=== PATIENT | female | born 2000 | race Caucasian/White ===

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

== ENCOUNTER 2025-05-20 07:35 | Inpatient (IN) ==
[2025-05-20] MEDS ORDERED: LIDOCAINE 1% LOCAL 20 ML VIAL INFIL PRN (08:01)
[2025-05-20] MEDS ORDERED: OXYTOCIN 30 UNITS/NSS 30 UNITS/500 ML BAG IV PRN (08:01)
[2025-05-20] MEDS: LACTATED RINGER'S 1,000 ML IV PRN (08:58)
--- NOTE | 2025-05-20 08:58 | History & Physical Report ---
Date of Service May 20, 2025 Assessment & Plan (1) Normal labor: Plan: Pt is a 25yo at 39w 6d with no significant antepartum hx presenting for induction of labor Routine labs ordered Pitocin ordered Epidural placement on demand Monitor tracing Expectant management for labor, anticipate Admission and Anticipated Discharge Date Admission Date: May 20, 2025 History of Present Illness Chief Complaint: IOL Primary Care Provider: Aziza Pino MD Pt is a 25yo female currently at 39w 6d with an EB 05/21/25 who is here for induction of labor. Jones bulb placed 05/19. Adequate movement; not feeling contractions, no fluid loss; no bloody show PMH: Obesity Had regular appointments with OB. Labs: Blood Type AB Positive 12/09/24 Antibody Screen NEGATIVE 12/09/24 Hgb 11.2 g/dl (12.0-16.0) L 02/24/25 Hct 34.3 % (37.0-47.0) L 02/24/25 MCV 83.8 fL (80.0-100.0) 10/20/24 Plt Count 330 Thousand/uL (140-400) 10/20/24 Rubella IgG Antibody 6.89 Index 10/20/24 Treponema pallidum Ab Negative (Negative) 02/24/25 Hepatitis C Ab (EIA) NON-REACTIVE (NON-REACTIVE) 10/20/24 HIV (1&2) Ag & Ab Conf NON-REACTIVE (NON-REACTIVE) 10/20/24 Glucose 1 Hr 50 gm 132 mg/dl (70-130) H 02/24/25 Chlamydia trachomatis RNA Not Detected (NotDetected) 10/19/24 Neisseria gonorrhoeae RNA Not Detected (NotDetected) 10/19/24 Labs Reviewed: declined cfDNA, msafp, quad smp gbs neg Review of Systems : Denies fever, chills, headache, vision changes, shortness of breath, difficulty breathing, chest pain, palpitations, RUQ/epigastric pain, dysuria Allergies Allergy/AdvReac Type Severity Reaction Status Date / Time No Known Allergies Allergy Unknown Verified 05/20/25 08:40 Home Medications Medication Instructions Recorded Confirmed Type digital therapeutic,LIAN device #1 ea 03/27/24 05/19/25 Rx prenat.vits,brandyn,[id number]-[id number] 1 tab PO DAILY 10/13/24 05/20/25 History breast pump #1 ea 01/06/25 05/19/25 Rx ferrous sulfate 325 mg (65 mg 325 mg PO Q OTHER DAY 05/19/25 05/20/25 History iron) tablet (iron) Patient History Medical History Difficult intravenous access AT RECENT MED ED VISIT/IV TEAM/ULTRASOUND NEEDED Migraines Nephrolithiasis Surgical History History of lithotripsy S/P subtotal parathyroidectomy Family History Other Dyslipidemia Denies family history of Ovarian cancer Prostate cancer Myocardial infarction Breast cancer Colorectal cancer Uterine cancer Social History Smoking Status: Never smoker Second Hand Exposure: No; Do You Dip or Chew Tobacco: No; Hx Alcohol Use: No Hx Substance Use: No Preferred Language: [place] Communication Ability: Effective Tape Machine Tailer Required: No Beliefs That Will Affect Care: None marital status: marital status details: Renato (23) [phone] Current Living Situation: Spouse Current Living Situation Comment: lives with spouse, 1 dog current occupational status: employed 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 Skin: warm, dry, intact HEENT: NC/AT, anicteric sclera, conjunctiva without injection Heart: S1/S2 heard, regular, no m/r/g Lungs: equal air entry bilaterally, no rales/rhonchi/wheezes Abd: Normoactive BS, soft, NT/ND, gravid uterus Ext: warm, no clubbing/cyanosis or edema Neuro: nonfocal, speech intact, no facial droop, moving all extremities on command : FHR baseline 145, moderate variability, accelerations present, decelerations absent, no contractions. Category 1 tracing. Results & Data Vital Signs (Past 12 Hours) Vital Signs Temp Pulse Resp BP 05/20/25 07:50 37.0 C 104 H 20 130/69 05/20/25 07:48 37.0 C 104 H 20 130/69 Supervising Physician Co-Signing Physician Notes Resident Physician Supervision Note: I interviewed and examined the patient. Discussed with Dr. Wilson and agree with findings and plan as documented in the note. Any exceptions or clarifications are listed here: ready for elective induction, no complaints. balloon still in place. abd soft gravid nt, efw 7-8#. ext nt calves, no edema. sve, balloon in vagina, cx /-2 post, arom attempted x 2 ? result. fhts categ 1. will begin pitocin. expectant mgmt. Documented By: Shasha Duarte MD, FACOG Resident Activity Tracking Resident Involvement: Resident Care Provided Care Provided: OB Delivery
[2025-05-20 09:00] LABS: Hematocrit (blood only) 36.0 % (37.0-47.0); Hemoglobin 12.1 g/dl (12.0-16.0); Mean Corpuscular Hemoglobin 27.9 pg (25.0-34.0); Mean Corpuscular Volume 82.9 fL (80.0-100.0); Platelet Count 205 K/uL (130-400); RDW Standard Deviation 43.3 fL (36.4-46.3); Red Blood Count 4.34 M/uL (4.20-5.40); White Blood Count 13.73 K/ul (4.8-10.8)
[2025-05-20] MEDS: OXYTOCIN 30 UNITS/NSS 30 UNITS/500 ML BAG IV PRN (09:03)
[2025-05-20] MEDS ORDERED: NALBUPHINE HCL INJ 10 MG/ML AMP IV PRN ×2 (11:33→20:19)
[2025-05-20] MEDS ORDERED: LIDOCAINE 2% MPF LOCAL 5 ML VIAL EPI PRN (11:33)
[2025-05-20] MEDS ORDERED: NALOXONE HCL 0.4 MG/1 ML VIAL/CARP IV PRN ×2 (11:33→20:19)
[2025-05-20] MEDS ORDERED: NALOXONE HCL 1 MG in SODIUM CHLORIDE 0.9% 1,000 ML IV PRN ×2 (11:33→20:19)
[2025-05-20] MEDS ORDERED: SODIUM CHLORIDE 0.9% PF INJ 10 ML VIAL EPI PRN (11:33)
[2025-05-20] MEDS ORDERED: fentANYL 2 MCG/ML BUPIVacaine 0.125%-NSS 100ML BAG EPI PRN (11:33)
[2025-05-20] MEDS ORDERED: BUPIVACAINE 0.25% PF 30 ML VIAL EPI PRN (11:33)
[2025-05-20] MEDS ORDERED: ROPIVACAINE 0.5% PF 5 MG/ML 20 ML VIAL EPI PRN (11:33)
--- NOTE | 2025-05-20 11:33 | Anesthesiology Consultation ---
Date of Service May 20, 2025 Assessment & Plan (1) Encounter for pre-operative examination: Chart Review Chart Review: Patient NOT seen in Pre Admission Testing and Acceptable Risk for Labor Epidural Consults Requested none History Height/Weight Height: 5 ft 4 in Weight: 116.573 kg Allergies Allergy/AdvReac Type Severity Reaction Status Date / Time No Known Allergies Allergy Unknown Verified 05/20/25 08:40 Medications Home Medications Medication Instructions Recorded Confirmed Last Taken digital therapeutic,LIAN device #1 ea 03/27/24 05/19/25 Unknown prenat.vits,brandyn,afo-jpal-[id number] 1 tab PO DAILY 10/13/24 05/20/25 05/19/25 breast pump #1 ea 01/06/25 05/19/25 Unknown ferrous sulfate 325 mg (65 mg 325 mg PO Q OTHER DAY 05/19/25 05/20/25 05/18/25 iron) tablet (iron) Active Medications Generic Name Dose Route Start Last Admin Trade Name Freq PRN Reason Stop Dose Admin Lactated Ringer's 1,000 mls @ 125 mls/hr 05/20/25 08:01 05/20/25 11:26 Lr IV 05/22/25 08:00 999 mls/hr .Q8H PRN Infusion L&D Protocol Protocol Oxytocin 30 units in 500 mls @ 8 mls/hr 05/20/25 08:11 05/20/25 11:00 Pitocin 30 Units/Nss IV 05/22/25 08:10 0.48 units/hr .Q24H PRN 8 mls/hr Labor Induction/Augmentation Titration Protocol 0.48 UNITS/HR Past Medical History Medical History Difficult intravenous access AT RECENT MED ED VISIT/IV TEAM/ULTRASOUND NEEDED Migraines Nephrolithiasis Past Family History Family History Other Dyslipidemia Denies family history of Ovarian cancer Prostate cancer Myocardial infarction Breast cancer Colorectal cancer Uterine cancer Past Surgical History Surgical History History of lithotripsy S/P subtotal parathyroidectomy Social History Smoking Status: Never smoker Do You Dip or Chew Tobacco: No Hx Alcohol Use: No Hx Substance Use: No substance use type: does not use Physical Exam Vital Signs Last Vital Signs Temp 98.2 F 05/20/25 11:02 Pulse 71 05/20/25 11:03 Resp 18 05/20/25 11:02 BP 109/67 05/20/25 11:03 Testing Laboratory Results 05/20/25 08:49 Blood Type AB Positive 05/20/25 08:49 Antibody Screen NEGATIVE 05/20/25 08:49
[2025-05-20] MEDS: fentANYL 2 MCG/ML BUPIVacaine 0.125%-NSS 100ML BAG ONE (11:54)
[2025-05-20] MEDS: BUPIVACAINE 0.25% PF 30 ML VIAL ONE (11:57)
[2025-05-20] MEDS: LIDOCAINE 2%/EPINEPHRINE 1:200,000 20 ML PF ONE (11:58)
[2025-05-20] MEDS: SODIUM CHLORIDE 0.9% PF INJ 10 ML VIAL ONE (11:58)
[2025-05-20] MEDS: BUPIVACAINE 0.25% PF 30 ML VIAL EPI STA (11:58)
[2025-05-20] MEDS: LIDOCAINE 2%/EPINEPHRINE 1:200,000 20 ML PF EPI STA (11:59)
[2025-05-20] MEDS: SODIUM CHLORIDE 0.9% PF INJ 10 ML VIAL EPI STA (11:59)
--- NOTE | 2025-05-20 12:11 | Labor Progress Brief Note ---
Date of Service May 20, 2025 Subjective comfortable with epidural. Assessment & Plan (1) Encounter for induction of labor: Plan c/w pit. fhts categ 1. some cx change. Admission and Anticipated Discharge Date Admission Date: May 20, 2025 Physical Exam Constitutional: WD/WN, vitals as above Genitourinary: Manual OB Exam: + cervical dilation 5 cm, + cervical effacement 70%, + station -2 and + amniotic fluid (arom ? thin mec) Results & Data Vital Signs (Past 12 Hours) Vital Signs Temp Pulse Resp BP Pulse Ox 05/20/25 12:03 94 H 05/20/25 12:03 119/63 05/20/25 12:02 97 05/20/25 12:02 86 05/20/25 11:57 96 05/20/25 11:57 78 05/20/25 11:57 84 05/20/25 11:57 116/59 L 05/20/25 11:54 88 05/20/25 11:54 123/62 05/20/25 11:52 97 05/20/25 11:52 78 05/20/25 11:52 118/68 05/20/25 11:51 88 05/20/25 11:51 114/72 05/20/25 11:47 98 05/20/25 11:47 91 H 05/20/25 11:42 99 05/20/25 11:42 80 05/20/25 11:37 96 05/20/25 11:37 83 05/20/25 11:03 71 05/20/25 11:03 109/67 05/20/25 11:02 18 05/20/25 11:02 98.2 F 18 05/20/25 10:17 18 05/20/25 10:17 18 05/20/25 10:17 81 05/20/25 10:17 128/65 05/20/25 07:50 98.6 F 104 H 20 130/69 05/20/25 07:48 98.6 F 104 H 20 130/69 Coding Level of Care Code None Diagnoses Encounter for induction of labor Z34.90
--- NOTE | 2025-05-20 15:09 | Labor Progress Brief Note ---
Date of Service May 20, 2025 Subjective comfortable with epidural Assessment & Plan (1) Encounter for induction of labor: Plan c/w pit, some cx change. fhts with ? early decels vs. variable decels vs. late decels, not persistent, has been repositioned and now fhts are categ 1. Admission and Anticipated Discharge Date Admission Date: May 20, 2025 Physical Exam Constitutional: WD/WN, vitals as above Genitourinary: Manual OB Exam: + cervical dilation 5 cm, + cervical effacement (75%) and + station -1 OB Exam Monitor Tracing: + external FHT monitor used, + external uterine monitor used (q2-4 pit at 12), + category I (+scalp stim response. ), + normal FHT variability and + early decelerations present (?, vs. variables non persistent. ) Results & Data Vital Signs (Past 12 Hours) Vital Signs Temp Pulse Resp BP Pulse Ox 05/20/25 15:02 100 05/20/25 15:02 82 05/20/25 15:00 93 H 05/20/25 15:00 106/59 L 05/20/25 14:57 97 05/20/25 14:57 70 05/20/25 14:52 97 05/20/25 14:52 69 05/20/25 14:47 97 05/20/25 14:47 71 05/20/25 14:46 78 05/20/25 14:46 108/60 05/20/25 14:42 96 05/20/25 14:42 74 05/20/25 14:37 98 05/20/25 14:37 67 05/20/25 14:32 97 05/20/25 14:32 85 05/20/25 14:30 76 05/20/25 14:30 111/60 05/20/25 14:27 98 05/20/25 14:27 77 05/20/25 14:22 97 05/20/25 14:22 82 05/20/25 14:17 97 05/20/25 14:17 78 05/20/25 14:15 74 05/20/25 14:15 110/63 05/20/25 14:12 97 05/20/25 14:12 77 05/20/25 14:07 97 05/20/25 14:07 79 05/20/25 14:02 96 05/20/25 14:02 86 05/20/25 14:01 18 05/20/25 14:01 18 05/20/25 14:00 88 05/20/25 14:00 120/69 05/20/25 13:57 97 05/20/25 13:57 84 05/20/25 13:52 98 05/20/25 13:52 72 05/20/25 13:47 99 05/20/25 13:47 70 05/20/25 13:47 74 05/20/25 13:47 110/65 05/20/25 13:42 97 05/20/25 13:42 74 05/20/25 13:37 97 05/20/25 13:37 81 05/20/25 13:32 97 05/20/25 13:32 87 05/20/25 13:32 79 05/20/25 13:32 117/64 05/20/25 13:29 93 05/20/25 13:29 83 05/20/25 13:27 97 05/20/25 13:27 78 05/20/25 13:22 98 05/20/25 13:22 83 05/20/25 13:17 96 05/20/25 13:17 75 05/20/25 13:16 78 05/20/25 13:16 115/62 05/20/25 13:12 99 05/20/25 13:12 79 05/20/25 13:07 95 05/20/25 13:07 72 05/20/25 13:02 96 05/20/25 13:02 75 05/20/25 13:00 18 05/20/25 13:00 97.9 F 18 05/20/25 13:00 84 05/20/25 13:00 109/60 05/20/25 12:58 94 05/20/25 12:58 84 05/20/25 12:57 94 05/20/25 12:57 83 05/20/25 12:52 96 05/20/25 12:52 81 05/20/25 12:47 96 05/20/25 12:47 73 05/20/25 12:46 74 05/20/25 12:46 109/59 L 05/20/25 12:42 96 05/20/25 12:42 70 05/20/25 12:37 97 05/20/25 12:37 69 05/20/25 12:32 96 05/20/25 12:32 71 05/20/25 12:31 77 05/20/25 12:31 108/58 L 05/20/25 12:27 95 05/20/25 12:27 77 05/20/25 12:22 96 05/20/25 12:22 71 05/20/25 12:17 96 05/20/25 12:17 75 05/20/25 12:13 72 05/20/25 12:13 116/62 05/20/25 12:12 97 05/20/25 12:12 74 05/20/25 12:08 82 05/20/25 12:08 119/65 05/20/25 12:07 97 05/20/25 12:07 79 05/20/25 12:03 94 H 05/20/25 12:03 119/63 05/20/25 12:02 97 05/20/25 12:02 86 05/20/25 11:57 96 05/20/25 11:57 78 05/20/25 11:57 84 05/20/25 11:57 116/59 L 05/20/25 11:54 88 05/20/25 11:54 123/62 05/20/25 11:52 97 05/20/25 11:52 78 05/20/25 11:52 118/68 05/20/25 11:51 88 05/20/25 11:51 114/72 05/20/25 11:47 98 05/20/25 11:47 91 H 05/20/25 11:42 99 05/20/25 11:42 80 05/20/25 11:37 96 05/20/25 11:37 83 05/20/25 11:03 71 05/20/25 11:03 109/67 05/20/25 11:02 18 05/20/25 11:02 98.2 F 18 05/20/25 10:17 18 05/20/25 10:17 18 05/20/25 10:17 81 05/20/25 10:17 128/65 05/20/25 07:50 98.6 F 104 H 20 130/69 05/20/25 07:48 98.6 F 104 H 20 130/69 Coding Level of Care Code None Diagnoses Encounter for induction of labor Z34.90
[2025-05-20] MEDS ORDERED: Nursing to Pharmacy Communication SCH ×2 (17:15→21:30)
--- NOTE | 2025-05-20 17:37 | Labor Progress Brief Note ---
Date of Service May 20, 2025 Subjective comfortable, ctsp due to decels. Assessment & Plan (1) Encounter for induction of labor: (2) with 39 completed weeks gestation: (3) Antepartum variable deceleration: Plan +scalp stim response, fse and iupc placed. these are variables but deep and not near delivery. mvu's >200. will back off pit to 10. begin amnioinfusion. pt and family aware. Admission and Anticipated Discharge Date Admission Date: May 20, 2025 Physical Exam Constitutional: WD/WN, vitals as above Genitourinary: Manual OB Exam: + cervical dilation 7 cm, + cervical effacement 100% and + station 0 OB Exam Monitor Tracing: + external FHT monitor used, + scalp electrode used, + external uterine monitor used (q2 pit at 12), + intra-uterine pressure catheter used, + category II, + normal FHT variability and + variable decelerations (not persistent but can be deep, maternal position has been changed) Results & Data Vital Signs (Past 12 Hours) Vital Signs Temp Pulse Resp BP Pulse Ox 05/20/25 17:31 87 05/20/25 17:31 120/66 05/20/25 17:27 98 05/20/25 17:27 87 05/20/25 17:22 98 05/20/25 17:22 102 H 05/20/25 17:17 98 05/20/25 17:17 90 05/20/25 17:16 18 05/20/25 17:16 98.2 F 18 05/20/25 17:16 92 H 05/20/25 17:16 112/70 05/20/25 17:12 98 05/20/25 17:12 92 H 05/20/25 17:07 99 05/20/25 17:07 98 H 05/20/25 17:02 99 05/20/25 17:02 86 05/20/25 17:01 93 H 05/20/25 17:01 132/62 05/20/25 16:57 98 05/20/25 16:57 91 H 05/20/25 16:52 98 05/20/25 16:52 92 H 05/20/25 16:47 98 05/20/25 16:47 86 05/20/25 16:45 78 05/20/25 16:45 114/58 L 05/20/25 16:42 97 05/20/25 16:42 86 05/20/25 16:37 98 05/20/25 16:37 85 05/20/25 16:32 99 05/20/25 16:32 80 05/20/25 16:30 82 05/20/25 16:30 112/55 L 05/20/25 16:27 97 05/20/25 16:27 87 05/20/25 16:22 98 05/20/25 16:22 81 05/20/25 16:17 99 05/20/25 16:17 78 05/20/25 16:16 97 H 05/20/25 16:16 116/65 05/20/25 16:13 94 05/20/25 16:13 85 05/20/25 16:12 98 05/20/25 16:12 84 05/20/25 16:07 98 05/20/25 16:07 76 05/20/25 16:02 97 05/20/25 16:02 77 05/20/25 16:01 16 05/20/25 16:01 16 05/20/25 16:01 79 05/20/25 16:01 110/62 05/20/25 15:57 98 05/20/25 15:57 90 05/20/25 15:54 93 05/20/25 15:54 81 05/20/25 15:52 98 05/20/25 15:52 78 05/20/25 15:48 93 05/20/25 15:48 77 05/20/25 15:47 97 05/20/25 15:47 70 05/20/25 15:45 94 H 05/20/25 15:45 108/58 L 05/20/25 15:42 97 05/20/25 15:42 78 05/20/25 15:37 98 05/20/25 15:37 78 05/20/25 15:32 98 05/20/25 15:32 88 05/20/25 15:32 85 05/20/25 15:32 109/58 L 05/20/25 15:27 98 05/20/25 15:27 76 05/20/25 15:22 97 05/20/25 15:22 81 05/20/25 15:17 96 05/20/25 15:17 79 05/20/25 15:16 77 05/20/25 15:16 103/58 L 05/20/25 15:12 97 05/20/25 15:12 78 05/20/25 15:07 96 05/20/25 15:07 77 05/20/25 15:02 100 05/20/25 15:02 82 05/20/25 15:00 16 05/20/25 15:00 98.2 F 16 05/20/25 15:00 93 H 05/20/25 15:00 106/59 L 05/20/25 14:57 97 05/20/25 14:57 70 05/20/25 14:52 97 05/20/25 14:52 69 05/20/25 14:47 97 05/20/25 14:47 71 05/20/25 14:46 78 05/20/25 14:46 108/60 05/20/25 14:42 96 05/20/25 14:42 74 05/20/25 14:37 98 05/20/25 14:37 67 05/20/25 14:32 97 05/20/25 14:32 85 05/20/25 14:30 76 05/20/25 14:30 111/60 05/20/25 14:27 98 05/20/25 14:27 77 05/20/25 14:22 97 05/20/25 14:22 82 05/20/25 14:17 97 05/20/25 14:17 78 05/20/25 14:15 74 05/20/25 14:15 110/63 05/20/25 14:12 97 05/20/25 14:12 77 05/20/25 14:07 97 05/20/25 14:07 79 05/20/25 14:02 96 05/20/25 14:02 86 05/20/25 14:01 18 05/20/25 14:01 18 05/20/25 14:00 88 05/20/25 14:00 120/69 05/20/25 13:57 97 05/20/25 13:57 84 05/20/25 13:52 98 05/20/25 13:52 72 05/20/25 13:47 99 05/20/25 13:47 70 05/20/25 13:47 74 05/20/25 13:47 110/65 05/20/25 13:42 97 05/20/25 13:42 74 05/20/25 13:37 97 05/20/25 13:37 81 05/20/25 13:32 97 05/20/25 13:32 87 05/20/25 13:32 79 05/20/25 13:32 117/64 05/20/25 13:29 93 05/20/25 13:29 83 05/20/25 13:27 97 05/20/25 13:27 78 05/20/25 13:22 98 05/20/25 13:22 83 05/20/25 13:17 96 05/20/25 13:17 75 05/20/25 13:16 78 05/20/25 13:16 115/62 05/20/25 13:12 99 05/20/25 13:12 79 05/20/25 13:07 95 05/20/25 13:07 72 05/20/25 13:02 96 05/20/25 13:02 75 05/20/25 13:00 18 05/20/25 13:00 97.9 F 18 05/20/25 13:00 84 05/20/25 13:00 109/60 05/20/25 12:58 94 05/20/25 12:58 84 05/20/25 12:57 94 05/20/25 12:57 83 05/20/25 12:52 96 05/20/25 12:52 81 05/20/25 12:47 96 05/20/25 12:47 73 05/20/25 12:46 74 05/20/25 12:46 109/59 L 05/20/25 12:42 96 05/20/25 12:42 70 05/20/25 12:37 97 05/20/25 12:37 69 05/20/25 12:32 96 05/20/25 12:32 71 05/20/25 12:31 77 05/20/25 12:31 108/58 L 05/20/25 12:27 95 05/20/25 12:27 77 05/20/25 12:22 96 05/20/25 12:22 71 05/20/25 12:17 96 05/20/25 12:17 75 05/20/25 12:13 72 05/20/25 12:13 116/62 05/20/25 12:12 97 05/20/25 12:12 74 05/20/25 12:08 82 05/20/25 12:08 119/65 05/20/25 12:07 97 05/20/25 12:07 79 05/20/25 12:03 94 H 05/20/25 12:03 119/63 05/20/25 12:02 97 05/20/25 12:02 86 05/20/25 11:57 96 05/20/25 11:57 78 05/20/25 11:57 84 05/20/25 11:57 116/59 L 05/20/25 11:54 88 05/20/25 11:54 123/62 05/20/25 11:52 97 05/20/25 11:52 78 05/20/25 11:52 118/68 05/20/25 11:51 88 05/20/25 11:51 114/72 05/20/25 11:47 98 05/20/25 11:47 91 H 05/20/25 11:42 99 05/20/25 11:42 80 05/20/25 11:37 96 05/20/25 11:37 83 05/20/25 11:03 71 05/20/25 11:03 109/67 05/20/25 11:02 18 05/20/25 11:02 98.2 F 18 05/20/25 10:17 18 05/20/25 10:17 18 05/20/25 10:17 81 05/20/25 10:17 128/65 05/20/25 07:50 98.6 F 104 H 20 130/69 05/20/25 07:48 98.6 F 104 H 20 130/69 Coding Level of Care Code None Diagnoses Encounter for induction of labor Z34.90 with 39 completed weeks gestation Z3A.39 Antepartum variable deceleration O36.8390
[2025-05-20] MEDS ORDERED: LIDOCAINE 2%/EPINEPHRINE 1:200,000 20 ML PF ONE (18:07)
[2025-05-20] MEDS ORDERED: ROPIVACAINE 0.5% 5 MG/ML 30 ML VIAL ONE (18:07)
--- NOTE | 2025-05-20 19:19 | Labor Progress Brief Note ---
Date of Service May 20, 2025 Subjective pt comfortable came to see pt due to deep variables. pit at 8 Assessment & Plan (1) Encounter for induction of labor: (2) Antepartum variable deceleration: Plan at this point we have deep variables for past about 10min but inadequate labor pattern and no cx change. we have amnioinfusion going. we are trying position change to alleviate variables. at this point can opt to try to improve labor to try to achieve cx change and if deep variables persist remote from delivery then will need to proceed with c/s vs. proceed with c/s if pt does not want to try that. she is unsure what to do, family in room with discussion of these options. i do feel we will know very soon if can continue labor and so will try that. Admission and Anticipated Discharge Date Admission Date: May 20, 2025 Physical Exam Constitutional: WD/WN, vitals as above Genitourinary: Manual OB Exam: + cervical dilation 7 cm, + cervical effacement 90% and + station 0 OB Exam Monitor Tracing: + scalp electrode used (+scalp stim noted. variables noted. ), + intra-uterine pressure catheter used, + category II, + normal FHT variability and + variable decelerations (last 10min ) Results & Data Vital Signs (Past 12 Hours) Vital Signs Temp Pulse Resp BP Pulse Ox 05/20/25 19:12 97 05/20/25 19:12 127 H 05/20/25 19:07 100 05/20/25 19:07 90 05/20/25 19:02 99 05/20/25 19:02 95 H 05/20/25 19:01 97 H 05/20/25 19:01 112/57 L 05/20/25 18:57 98 05/20/25 18:57 101 H 05/20/25 18:52 98 05/20/25 18:52 101 H 05/20/25 18:47 100 05/20/25 18:47 103 H 05/20/25 18:42 98 05/20/25 18:42 106 H 05/20/25 18:37 98 05/20/25 18:37 91 H 05/20/25 18:32 99 05/20/25 18:32 91 H 05/20/25 18:31 97 H 05/20/25 18:31 117/59 L 05/20/25 18:27 99 05/20/25 18:27 88 05/20/25 18:22 97 05/20/25 18:22 116 H 05/20/25 18:21 92 05/20/25 18:21 103 H 05/20/25 18:20 94 H 05/20/25 18:20 123/58 L 05/20/25 18:17 99 05/20/25 18:17 84 05/20/25 18:17 121/57 L 05/20/25 18:15 86 05/20/25 18:15 120/59 L 05/20/25 18:12 99 05/20/25 18:12 95 H 05/20/25 18:12 87 05/20/25 18:12 126/64 05/20/25 18:07 98 05/20/25 18:07 89 05/20/25 18:02 99 05/20/25 18:02 89 05/20/25 18:01 16 05/20/25 18:01 16 05/20/25 18:00 96 H 05/20/25 18:00 123/65 05/20/25 17:57 98 05/20/25 17:57 87 05/20/25 17:52 98 05/20/25 17:52 95 H 05/20/25 17:52 121/56 L 05/20/25 17:47 98 05/20/25 17:47 84 05/20/25 17:46 85 05/20/25 17:46 118/62 05/20/25 17:42 98 05/20/25 17:42 98 H 05/20/25 17:37 98 05/20/25 17:37 93 H 05/20/25 17:33 92 05/20/25 17:33 88 05/20/25 17:32 96 05/20/25 17:32 87 05/20/25 17:31 87 05/20/25 17:31 120/66 05/20/25 17:27 98 05/20/25 17:27 87 05/20/25 17:22 98 05/20/25 17:22 102 H 05/20/25 17:17 98 05/20/25 17:17 90 05/20/25 17:16 18 05/20/25 17:16 98.2 F 18 05/20/25 17:16 92 H 05/20/25 17:16 112/70 05/20/25 17:12 98 05/20/25 17:12 92 H 05/20/25 17:07 99 05/20/25 17:07 98 H 05/20/25 17:02 99 05/20/25 17:02 86 05/20/25 17:01 93 H 05/20/25 17:01 132/62 05/20/25 16:57 98 05/20/25 16:57 91 H 05/20/25 16:52 98 05/20/25 16:52 92 H 05/20/25 16:47 98 05/20/25 16:47 86 05/20/25 16:45 78 05/20/25 16:45 114/58 L 05/20/25 16:42 97 05/20/25 16:42 86 05/20/25 16:37 98 05/20/25 16:37 85 05/20/25 16:32 99 05/20/25 16:32 80 05/20/25 16:30 82 05/20/25 16:30 112/55 L 05/20/25 16:27 97 05/20/25 16:27 87 05/20/25 16:22 98 05/20/25 16:22 81 05/20/25 16:17 99 05/20/25 16:17 78 05/20/25 16:16 97 H 05/20/25 16:16 116/65 05/20/25 16:13 94 05/20/25 16:13 85 05/20/25 16:12 98 05/20/25 16:12 84 05/20/25 16:07 98 05/20/25 16:07 76 05/20/25 16:02 97 05/20/25 16:02 77 05/20/25 16:01 16 05/20/25 16:01 16 05/20/25 16:01 79 05/20/25 16:01 110/62 05/20/25 15:57 98 05/20/25 15:57 90 05/20/25 15:54 93 05/20/25 15:54 81 05/20/25 15:52 98 05/20/25 15:52 78 05/20/25 15:48 93 05/20/25 15:48 77 10/23/25 15:47 97 05/20/25 15:47 70 05/20/25 15:45 94 H 05/20/25 15:45 108/58 L 05/20/25 15:42 97 05/20/25 15:42 78 05/20/25 15:37 98 05/20/25 15:37 78 05/20/25 15:32 98 05/20/25 15:32 88 05/20/25 15:32 85 05/20/25 15:32 109/58 L 05/20/25 15:27 98 05/20/25 15:27 76 05/20/25 15:22 97 05/20/25 15:22 81 05/20/25 15:17 96 05/20/25 15:17 79 05/20/25 15:16 77 05/20/25 15:16 103/58 L 05/20/25 15:12 97 05/20/25 15:12 78 05/20/25 15:07 96 05/20/25 15:07 77 05/20/25 15:02 100 05/20/25 15:02 82 05/20/25 15:00 16 05/20/25 15:00 98.2 F 16 05/20/25 15:00 93 H 05/20/25 15:00 106/59 L 05/20/25 14:57 97 05/20/25 14:57 70 05/20/25 14:52 97 05/20/25 14:52 69 05/20/25 14:47 97 05/20/25 14:47 71 05/20/25 14:46 78 05/20/25 14:46 108/60 05/20/25 14:42 96 05/20/25 14:42 74 05/20/25 14:37 98 05/20/25 14:37 67 05/20/25 14:32 97 05/20/25 14:32 85 05/20/25 14:30 76 05/20/25 14:30 111/60 05/20/25 14:27 98 05/20/25 14:27 77 05/20/25 14:22 97 05/20/25 14:22 82 05/20/25 14:17 97 05/20/25 14:17 78 05/20/25 14:15 74 05/20/25 14:15 110/63 05/20/25 14:12 97 05/20/25 14:12 77 05/20/25 14:07 97 05/20/25 14:07 79 05/20/25 14:02 96 05/20/25 14:02 86 05/20/25 14:01 18 05/20/25 14:01 18 05/20/25 14:00 88 05/20/25 14:00 120/69 05/20/25 13:57 97 05/20/25 13:57 84 05/20/25 13:52 98 05/20/25 13:52 72 05/20/25 13:47 99 05/20/25 13:47 70 05/20/25 13:47 74 05/20/25 13:47 110/65 05/20/25 13:42 97 05/20/25 13:42 74 05/20/25 13:37 97 05/20/25 13:37 81 05/20/25 13:32 97 05/20/25 13:32 87 05/20/25 13:32 79 05/20/25 13:32 117/64 05/20/25 13:29 93 05/20/25 13:29 83 05/20/25 13:27 97 05/20/25 13:27 78 05/20/25 13:22 98 05/20/25 13:22 83 05/20/25 13:17 96 05/20/25 13:17 75 05/20/25 13:16 78 05/20/25 13:16 115/62 05/20/25 13:12 99 05/20/25 13:12 79 05/20/25 13:07 95 05/20/25 13:07 72 05/20/25 13:02 96 05/20/25 13:02 75 05/20/25 13:00 18 05/20/25 13:00 97.9 F 18 05/20/25 13:00 84 05/20/25 13:00 109/60 05/20/25 12:58 94 05/20/25 12:58 84 05/20/25 12:57 94 05/20/25 12:57 83 05/20/25 12:52 96 05/20/25 12:52 81 05/20/25 12:47 96 05/20/25 12:47 73 05/20/25 12:46 74 05/20/25 12:46 109/59 L 05/20/25 12:42 96 05/20/25 12:42 70 05/20/25 12:37 97 05/20/25 12:37 69 05/20/25 12:32 96 05/20/25 12:32 71 05/20/25 12:31 77 05/20/25 12:31 108/58 L 05/20/25 12:27 95 05/20/25 12:27 77 05/20/25 12:22 96 05/20/25 12:22 71 05/20/25 12:17 96 05/20/25 12:17 75 05/20/25 12:13 72 05/20/25 12:13 116/62 05/20/25 12:12 97 05/20/25 12:12 74 05/20/25 12:08 82 05/20/25 12:08 119/65 05/20/25 12:07 97 05/20/25 12:07 79 05/20/25 12:03 94 H 05/20/25 12:03 119/63 05/20/25 12:02 97 05/20/25 12:02 86 05/20/25 11:57 96 05/20/25 11:57 78 05/20/25 11:57 84 05/20/25 11:57 116/59 L 05/20/25 11:54 88 05/20/25 11:54 123/62 05/20/25 11:52 97 05/20/25 11:52 78 05/20/25 11:52 118/68 05/20/25 11:51 88 05/20/25 11:51 114/72 05/20/25 11:47 98 05/20/25 11:47 91 H 05/20/25 11:42 99 05/20/25 11:42 80 05/20/25 11:37 96 05/20/25 11:37 83 05/20/25 11:03 71 05/20/25 11:03 109/67 05/20/25 11:02 18 05/20/25 11:02 98.2 F 18 05/20/25 10:17 18 05/20/25 10:17 18 05/20/25 10:17 81 05/20/25 10:17 128/65 05/20/25 07:50 98.6 F 104 H 20 130/69 05/20/25 07:48 98.6 F 104 H 20 130/69 Coding Level of Care Code None Diagnoses Encounter for induction of labor Z34.90 Antepartum variable deceleration O36.8390
--- NOTE | 2025-05-20 19:25 | Labor Progress Brief Note ---
Date of Service May 20, 2025 Subjective variables deep and recurrent Assessment & Plan (1) Encounter for induction of labor: (2) Antepartum variable deceleration: Plan pitocin stopped. discussed with pt and family, rec to proceed with c/s. pt and family agree. anesth notified by me, peds being notified by nursing. will see how ctx diminish, may need to give terb. Admission and Anticipated Discharge Date Admission Date: May 20, 2025 Physical Exam Constitutional: WD/WN, vitals as above Genitourinary: OB Exam Monitor Tracing: + scalp electrode used (deep recurrent variables. ), + category II and + variable decelerations Results & Data Vital Signs (Past 12 Hours) Vital Signs Temp Pulse Resp BP Pulse Ox 05/20/25 19:17 99 05/20/25 19:17 109 H 05/20/25 19:17 111 H 05/20/25 19:17 151/73 H 05/20/25 19:12 97 05/20/25 19:12 127 H 05/20/25 19:07 100 05/20/25 19:07 90 05/20/25 19:02 99 05/20/25 19:02 95 H 05/20/25 19:01 97 H 05/20/25 19:01 112/57 L 05/20/25 18:57 98 05/20/25 18:57 101 H 05/20/25 18:52 98 05/20/25 18:52 101 H 05/20/25 18:47 100 05/20/25 18:47 103 H 05/20/25 18:42 98 05/20/25 18:42 106 H 05/20/25 18:37 98 05/20/25 18:37 91 H 05/20/25 18:32 99 05/20/25 18:32 91 H 05/20/25 18:31 97 H 05/20/25 18:31 117/59 L 05/20/25 18:27 99 05/20/25 18:27 88 05/20/25 18:22 97 05/20/25 18:22 116 H 05/20/25 18:21 92 05/20/25 18:21 103 H 05/20/25 18:20 94 H 05/20/25 18:20 123/58 L 05/20/25 18:17 99 05/20/25 18:17 84 05/20/25 18:17 121/57 L 05/20/25 18:15 86 05/20/25 18:15 120/59 L 05/20/25 18:12 99 05/20/25 18:12 95 H 05/20/25 18:12 87 05/20/25 18:12 126/64 05/20/25 18:07 98 05/20/25 18:07 89 05/20/25 18:02 99 05/20/25 18:02 89 05/20/25 18:01 16 05/20/25 18:01 16 05/20/25 18:00 96 H 05/20/25 18:00 123/65 05/20/25 17:57 98 05/20/25 17:57 87 05/20/25 17:52 98 05/20/25 17:52 95 H 05/20/25 17:52 121/56 L 05/20/25 17:47 98 05/20/25 17:47 84 05/20/25 17:46 85 05/20/25 17:46 118/62 05/20/25 17:42 98 05/20/25 17:42 98 H 05/20/25 17:37 98 05/20/25 17:37 93 H 05/20/25 17:33 92 05/20/25 17:33 88 05/20/25 17:32 96 05/20/25 17:32 87 05/20/25 17:31 87 05/20/25 17:31 120/66 05/20/25 17:27 98 05/20/25 17:27 87 05/20/25 17:22 98 05/20/25 17:22 102 H 05/20/25 17:17 98 05/20/25 17:17 90 05/20/25 17:16 18 05/20/25 17:16 98.2 F 18 05/20/25 17:16 92 H 05/20/25 17:16 112/70 05/20/25 17:12 98 05/20/25 17:12 92 H 05/20/25 17:07 99 05/20/25 17:07 98 H 05/20/25 17:02 99 05/20/25 17:02 86 05/20/25 17:01 93 H 05/20/25 17:01 132/62 05/20/25 16:57 98 05/20/25 16:57 91 H 05/20/25 16:52 98 05/20/25 16:52 92 H 05/20/25 16:47 98 05/20/25 16:47 86 05/20/25 16:45 78 05/20/25 16:45 114/58 L 05/20/25 16:42 97 05/20/25 16:42 86 05/20/25 16:37 98 05/20/25 16:37 85 05/20/25 16:32 99 05/20/25 16:32 80 05/20/25 16:30 82 05/20/25 16:30 112/55 L 05/20/25 16:27 97 05/20/25 16:27 87 05/20/25 16:22 98 05/20/25 16:22 81 05/20/25 16:17 99 05/20/25 16:17 78 05/20/25 16:16 97 H 05/20/25 16:16 116/65 05/20/25 16:13 94 05/20/25 16:13 85 05/20/25 16:12 98 05/20/25 16:12 84 05/20/25 16:07 98 05/20/25 16:07 76 05/20/25 16:02 97 05/20/25 16:02 77 05/20/25 16:01 16 05/20/25 16:01 16 05/20/25 16:01 79 05/20/25 16:01 110/62 05/20/25 15:57 98 05/20/25 15:57 90 05/20/25 15:54 93 05/20/25 15:54 81 05/20/25 15:52 98 05/20/25 15:52 78 05/20/25 15:48 93 05/20/25 15:48 77 05/20/25 15:47 97 05/20/25 15:47 70 05/20/25 15:45 94 H 05/20/25 15:45 108/58 L 05/20/25 15:42 97 05/20/25 15:42 78 05/20/25 15:37 98 05/20/25 15:37 78 05/20/25 15:32 98 10/23/25 15:32 88 05/20/25 15:32 85 05/20/25 15:32 109/58 L 05/20/25 15:27 98 05/20/25 15:27 76 05/20/25 15:22 97 05/20/25 15:22 81 05/20/25 15:17 96 05/20/25 15:17 79 05/20/25 15:16 77 05/20/25 15:16 103/58 L 05/20/25 15:12 97 05/20/25 15:12 78 05/20/25 15:07 96 05/20/25 15:07 77 05/20/25 15:02 100 05/20/25 15:02 82 05/20/25 15:00 16 05/20/25 15:00 98.2 F 16 05/20/25 15:00 93 H 05/20/25 15:00 106/59 L 05/20/25 14:57 97 05/20/25 14:57 70 05/20/25 14:52 97 05/20/25 14:52 69 05/20/25 14:47 97 05/20/25 14:47 71 05/20/25 14:46 78 05/20/25 14:46 108/60 05/20/25 14:42 96 05/20/25 14:42 74 05/20/25 14:37 98 05/20/25 14:37 67 05/20/25 14:32 97 05/20/25 14:32 85 05/20/25 14:30 76 05/20/25 14:30 111/60 05/20/25 14:27 98 05/20/25 14:27 77 05/20/25 14:22 97 05/20/25 14:22 82 05/20/25 14:17 97 05/20/25 14:17 78 05/20/25 14:15 74 05/20/25 14:15 110/63 05/20/25 14:12 97 05/20/25 14:12 77 05/20/25 14:07 97 05/20/25 14:07 79 05/20/25 14:02 96 05/20/25 14:02 86 05/20/25 14:01 18 05/20/25 14:01 18 05/20/25 14:00 88 05/20/25 14:00 120/69 05/20/25 13:57 97 05/20/25 13:57 84 05/20/25 13:52 98 05/20/25 13:52 72 05/20/25 13:47 99 05/20/25 13:47 70 05/20/25 13:47 74 05/20/25 13:47 110/65 05/20/25 13:42 97 05/20/25 13:42 74 05/20/25 13:37 97 05/20/25 13:37 81 05/20/25 13:32 97 05/20/25 13:32 87 05/20/25 13:32 79 05/20/25 13:32 117/64 05/20/25 13:29 93 05/20/25 13:29 83 05/20/25 13:27 97 05/20/25 13:27 78 05/20/25 13:22 98 05/20/25 13:22 83 05/20/25 13:17 96 05/20/25 13:17 75 05/20/25 13:16 78 05/20/25 13:16 115/62 05/20/25 13:12 99 05/20/25 13:12 79 05/20/25 13:07 95 05/20/25 13:07 72 05/20/25 13:02 96 05/20/25 13:02 75 05/20/25 13:00 18 05/20/25 13:00 97.9 F 18 05/20/25 13:00 84 05/20/25 13:00 109/60 05/20/25 12:58 94 05/20/25 12:58 84 05/20/25 12:57 94 05/20/25 12:57 83 05/20/25 12:52 96 05/20/25 12:52 81 05/20/25 12:47 96 05/20/25 12:47 73 05/20/25 12:46 74 05/20/25 12:46 109/59 L 05/20/25 12:42 96 05/20/25 12:42 70 05/20/25 12:37 97 05/20/25 12:37 69 05/20/25 12:32 96 05/20/25 12:32 71 10/23/25 12:31 77 05/20/25 12:31 108/58 L 05/20/25 12:27 95 05/20/25 12:27 77 05/20/25 12:22 96 05/20/25 12:22 71 05/20/25 12:17 96 05/20/25 12:17 75 05/20/25 12:13 72 05/20/25 12:13 116/62 05/20/25 12:12 97 05/20/25 12:12 74 05/20/25 12:08 82 05/20/25 12:08 119/65 05/20/25 12:07 97 05/20/25 12:07 79 05/20/25 12:03 94 H 05/20/25 12:03 119/63 05/20/25 12:02 97 05/20/25 12:02 86 05/20/25 11:57 96 05/20/25 11:57 78 05/20/25 11:57 84 05/20/25 11:57 116/59 L 05/20/25 11:54 88 05/20/25 11:54 123/62 05/20/25 11:52 97 05/20/25 11:52 78 05/20/25 11:52 118/68 05/20/25 11:51 88 05/20/25 11:51 114/72 05/20/25 11:47 98 05/20/25 11:47 91 H 05/20/25 11:42 99 05/20/25 11:42 80 05/20/25 11:37 96 05/20/25 11:37 83 05/20/25 11:03 71 05/20/25 11:03 109/67 05/20/25 11:02 18 05/20/25 11:02 98.2 F 18 05/20/25 10:17 18 05/20/25 10:17 18 05/20/25 10:17 81 05/20/25 10:17 128/65 05/20/25 07:50 98.6 F 104 H 20 130/69 05/20/25 07:48 98.6 F 104 H 20 130/69 Coding Level of Care Code None Diagnoses Encounter for induction of labor Z34.90 Antepartum variable deceleration O36.8390
[2025-05-20] MEDS ORDERED: LACTATED RINGER'S 1,000 ML IV SCH (19:30)
[2025-05-20] MEDS ORDERED: PHENYLEPHRINE HCL 25 MG/250 ML NSS IV ONE (19:30)
[2025-05-20] MEDS ORDERED: PHENYLEPHRINE 100MCG/ML 5ML SYR ONE (19:30)
[2025-05-20] MEDS ORDERED: DEXAMETHASONE SOD INJ 4 MG/ML VIAL ONE (19:31)
[2025-05-20] MEDS ORDERED: ONDANSETRON INJ 2 MG/ML 2 ML VIAL ONE (19:31)
[2025-05-20] MEDS: ACETAMINOPHEN 500 MG TAB PO SCH (19:39)
[2025-05-20] MEDS: CITRIC ACID/SODIUM CITRATE 15 ML UDC PO SCH (19:40)
[2025-05-20] MEDS: ceFAZolin 3000MG 3,000 MG/72.5 ML BAG IV SCH (19:43)
[2025-05-20] MEDS: AZITHROMYCIN 500 MG/255 ML BAG IV SCH (19:53)
[2025-05-20] MEDS ORDERED: MoRPHine SULFATE PF 1 MG/ML 10 ML AMP/VIAL ONE (20:03)
[2025-05-20] MEDS ORDERED: KETAMINE HCL 10MG/ML SYR ONE (20:08)
[2025-05-20] MEDS ORDERED: MIDAZOLAM HCL 1 MG/ML 2ML VIAL ONE (20:08)
[2025-05-20] MEDS ORDERED: METHYLERGONOVINE MALEATE 0.2 MG/ML AMP ONE (20:10)
[2025-05-20] MEDS: TERBUTALINE SULFATE 1 MG/ML VIAL SQ ONE (20:17)
[2025-05-20] MEDS ORDERED: HYDROmorphone INJ 0.5 MG/0.5 ML SYR IV PRN (20:19)
[2025-05-20] MEDS ORDERED: PROMETHAZINE 6.25 MG/50.25 ML BAG IV PRN (20:19)
[2025-05-20] MEDS ORDERED: ONDANSETRON INJ 2 MG/ML 2 ML VIAL IV PRN (20:19)
[2025-05-20] MEDS ORDERED: LACTATED RINGER'S 500 ML IV PRN (20:19)
[2025-05-20] MEDS ORDERED: NALOXONE HCL 0.08 MG in SYRINGE 1.8 ML IV PRN (20:19)
[2025-05-20] MEDS ORDERED: diphenhydrAMINE 50 MG/ML VIAL IV PRN (20:19)
[2025-05-20] MEDS ORDERED: MoRPHine SULFATE PF 1 MG/ML 10 ML AMP/VIAL EPI ONE (20:19)
--- NOTE | 2025-05-20 20:21 | Anesthesia Procedure Note ---
Date of Service May 20, 2025 Anesthesia Epidural Re-Dose Vital Signs Temp Pulse Resp BP Pulse Ox 37.4 C 114 H 22 124/58 L 98 05/20/25 19:05 05/20/25 19:37 05/20/25 19:05 05/20/25 19:31 05/20/25 19:37 Notes Pain Intensity: 4 Dilatation (cm): 7.0 Effacement (%): 100 Called by nursing to evaluate epidural as the patient is having increased pain. The epidural was re-dosed with the following medications (all medications via epidural route) after negative aspiration of the epidural catheter for CSF/HEME. 5ml of 2% LIdocaine mixed with 5ml of 0.5% ropivicaine. Redosed at 1800. After Epidural Re-Dose Mental Status: alert / awake / arousable Pain: improving with treatment Airway Patency, RR, SpO2: stable & adequate BP & HR: stable & adequate
[2025-05-20 20:23] LABS: Base Excess Cord Arterial Bld -10.7 mEq/L (-9-1.8); Base Excess Cord Venous Blood -7.7 mEq/L (-7.7-1.9); CO2 Cord Arterial Blood 71 mmHg (39.1-73.5); Cord Venous Blood PO2 < 20 mmHg (14.1-43.3); HCO3 Cord Arterial Blood 21 mmol/L (19.7-28.5); O2 Saturation Cord Venous Bld < 60.0 % (<68); PO2 Cord Arterial Blood < 20 mmHg (4.1-31.7); pH Cord Arterial Blood 7.07 (7.1-7.38)
[2025-05-20] MEDS ORDERED: NO NARCOTICS OR SEDATIVES SCH (20:30)
[2025-05-20] MEDS ORDERED: SODIUM CHLORIDE 0.9% 1,000 ML IV SCH (20:30)
[2025-05-20] MEDS ORDERED: DC INTRASPINAL MORPHINE SCH (20:30)
--- NOTE | 2025-05-20 20:36 | Operative Report ---
Post Operative Report Pre & Post Diagnosis Operation Date: 05/20/25 20:00 Pre-Op Diagnosis: 1. 39 week elective induction of labor 2. intolerance of labor 3. maternal obesity Post-Op Diagnosis: 1. 39 week elective induction of labor 2. intolerance of labor 3. maternal obesity I identified the patient and participated in the time-out.: Yes Procedure Operation Date: 05/20/25 20:00 Actual Procedures p Primary Low Transverse Section in - Shasha Duarte MD, FACOG Surgeon Shasha Duarte MD, FACOG Roof Mechanic RN Quantitative Blood Loss (QBL) 667 Findings Consistent with Post-Op Diagnosis (viable male, apgars pending. normal uterus tubes and ovaries bilaterally. meconium stained fluid. ) Fluids 1200 Specimens cord blood, cord gases, placenta Drains sorensen Anesthesia Type Labor Epidural Complications none Disposition Accompanied Patient To Recovery: No Disposition: L&D Indications 25yo at 39+wks admitted for elective induction of labor. Had sorensen balloon overnight and on arrival, AROM and pitocin and received epidural anesthesia. Dilated to 7cm but recurrent deep variable decelerations remote from delivery noted despite amnioinfusion and use of pitocin to try to achieve adequate mvu's. Cervix remained at 7cm and recommended c/s delivery. Details in labor progress n otes. Description of Procedure The patient was taken to the operating room and identified. After adequate anesthesia was obtained, she was placed in the supine position with a leftward tilt on the operating table and prepped and draped in the usual sterile fashion. A sorensen catheter had already been placed. The knife was used to create a Pfannensteil skin incision that was carried down to the underlying layer of fascia. The fascia was nicked in the midline and this opening was extended laterally using Rodriguez scissors. Vikki clamps were placed on the superior and inferior aspect of the fascial incision tenting it upward and the underlying rectus muscles were dissected off the overlying fascia both sharply and bluntly using Rodriguez scissors. The rectus muscles were bluntly in the midline. The peritoneal cavity was bluntly entered into. This opening was stretched. The bladder blade was placed. The vesicouterine peritoneum was elevated and opened up into and the bladder flap was created digitally and bladder blade was replaced. The knife was used to create a hysterotomy and this opening was stretched. The operators hand was placed through the hysterotomy and the bladder blade was removed. The head was elevated and flexed and with fundal pressure the head was unable to be delivered and a vacuum was applied and with one pull the cephalic was delivered. The shoulders and body were rapidly delivered. The cord was clamped and cut and the infant's mouth and nares were bulb suction. The infant was handed off to the awaiting pediatricians. Cord blood was obtained. The placenta was manually expressed. The uterus was exteriorized and cleared of all clots and debris. Dilute IV Pitocin was begun. The uterine tone was improving except the SANTO, and so im methergine placed in muscle of uterus. Hemostasis improved. The hysterotomy was closed in a running interlocking fashion using 0 Vicryl followed by a second imbricating layer of 0 Vicryl. The hysterotomy was hemostatic. The pelvis was suctioned. The uterus was returned to the abdomen. The gutters were cleared of all clots and debris. The hysterotomy was reinspected and a bleeding site in midline was stitched with figure of eight suture of 3-0 vicryl and the hysterotomy was noted to be hemostatic. The fascia was then closed in running fashion using 0 Vicryl. The subcutaneous fat was copiously irrigated and reapproximated using 2-0 chromic. The skin was closed in a subcuticular fashion using 4-0 monocryl. At this point the procedure was terminated. The patient was transferred to the recovery room in stable condition. All sponge, lap and needle counts are correct x2. I attest to the content of the Intraoperative Record and any orders documented therein. Any exceptions are noted below. OB Procedure Charges 71796
--- NOTE | 2025-05-20 20:51 | Anesthesiology Progress Note ---
Date of Service May 20, 2025 Anesthesia Post Procedure Vital Signs Vital Signs: Temp Pulse Resp BP Pulse Ox 05/20/25 20:49 92 05/20/25 20:49 109 H 05/20/25 20:47 98 05/20/25 20:47 96 H 05/20/25 20:43 100 H 05/20/25 20:43 110/55 L 05/20/25 20:42 99 05/20/25 20:42 101 H 05/20/25 19:37 98 05/20/25 19:37 114 H 05/20/25 19:32 99 05/20/25 19:32 97 H 05/20/25 19:31 104 H 05/20/25 19:31 124/58 L 05/20/25 19:27 96 05/20/25 19:27 118 H 05/20/25 19:22 98 05/20/25 19:22 99 H 05/20/25 19:17 99 05/20/25 19:17 109 H 05/20/25 19:17 111 H 05/20/25 19:17 151/73 H 05/20/25 19:12 97 05/20/25 19:12 127 H 05/20/25 19:07 100 05/20/25 19:07 90 05/20/25 19:05 22 05/20/25 19:05 37.4 C 22 05/20/25 19:02 99 05/20/25 19:02 95 H 05/20/25 19:01 97 H 05/20/25 19:01 112/57 L 05/20/25 18:57 98 05/20/25 18:57 101 H 05/20/25 18:52 98 05/20/25 18:52 101 H 05/20/25 18:47 100 05/20/25 18:47 103 H 05/20/25 18:42 98 05/20/25 18:42 106 H 05/20/25 18:37 98 05/20/25 18:37 91 H 05/20/25 18:32 99 05/20/25 18:32 91 H 05/20/25 18:31 97 H 05/20/25 18:31 117/59 L 05/20/25 18:27 99 05/20/25 18:27 88 05/20/25 18:22 97 05/20/25 18:22 116 H 05/20/25 18:21 92 05/20/25 18:21 103 H 05/20/25 18:20 94 H 05/20/25 18:20 123/58 L 05/20/25 18:17 99 05/20/25 18:17 84 05/20/25 18:17 121/57 L 05/20/25 18:15 86 05/20/25 18:15 120/59 L 05/20/25 18:12 99 05/20/25 18:12 95 H 05/20/25 18:12 87 05/20/25 18:12 126/64 05/20/25 18:07 98 05/20/25 18:07 89 05/20/25 18:02 99 05/20/25 18:02 89 05/20/25 18:01 16 05/20/25 18:01 16 05/20/25 18:00 96 H 05/20/25 18:00 123/65 05/20/25 17:57 98 05/20/25 17:57 87 05/20/25 17:52 98 05/20/25 17:52 95 H 05/20/25 17:52 121/56 L 05/20/25 17:47 98 05/20/25 17:47 84 05/20/25 17:46 85 05/20/25 17:46 118/62 05/20/25 17:42 98 05/20/25 17:42 98 H 05/20/25 17:37 98 05/20/25 17:37 93 H 05/20/25 17:33 92 05/20/25 17:33 88 05/20/25 17:32 96 05/20/25 17:32 87 05/20/25 17:31 87 05/20/25 17:31 120/66 05/20/25 17:27 98 05/20/25 17:27 87 05/20/25 17:22 98 05/20/25 17:22 102 H 05/20/25 17:17 98 05/20/25 17:17 90 05/20/25 17:16 18 05/20/25 17:16 36.8 C 18 05/20/25 17:16 92 H 05/20/25 17:16 112/70 05/20/25 17:12 98 05/20/25 17:12 92 H 05/20/25 17:07 99 05/20/25 17:07 98 H 05/20/25 17:02 99 05/20/25 17:02 86 05/20/25 17:01 93 H 05/20/25 17:01 132/62 05/20/25 16:57 98 05/20/25 16:57 91 H 05/20/25 16:52 98 05/20/25 16:52 92 H 05/20/25 16:47 98 05/20/25 16:47 86 05/20/25 16:45 78 05/20/25 16:45 114/58 L 05/20/25 16:42 97 05/20/25 16:42 86 05/20/25 16:37 98 05/20/25 16:37 85 05/20/25 16:32 99 05/20/25 16:32 80 05/20/25 16:30 82 05/20/25 16:30 112/55 L 05/20/25 16:27 97 05/20/25 16:27 87 05/20/25 16:22 98 05/20/25 16:22 81 05/20/25 16:17 99 05/20/25 16:17 78 05/20/25 16:16 97 H 05/20/25 16:16 116/65 05/20/25 16:13 94 05/20/25 16:13 85 05/20/25 16:12 98 05/20/25 16:12 84 05/20/25 16:07 98 05/20/25 16:07 76 05/20/25 16:02 97 05/20/25 16:02 77 05/20/25 16:01 16 05/20/25 16:01 16 05/20/25 16:01 79 05/20/25 16:01 110/62 05/20/25 15:57 98 05/20/25 15:57 90 05/20/25 15:54 93 05/20/25 15:54 81 05/20/25 15:52 98 05/20/25 15:52 78 05/20/25 15:48 93 05/20/25 15:48 77 05/20/25 15:47 97 05/20/25 15:47 70 05/20/25 15:45 94 H 05/20/25 15:45 108/58 L 05/20/25 15:42 97 05/20/25 15:42 78 05/20/25 15:37 98 05/20/25 15:37 78 05/20/25 15:32 98 05/20/25 15:32 88 05/20/25 15:32 85 05/20/25 15:32 109/58 L 05/20/25 15:27 98 05/20/25 15:27 76 05/20/25 15:22 97 05/20/25 15:22 81 05/20/25 15:17 96 05/20/25 15:17 79 05/20/25 15:16 77 05/20/25 15:16 103/58 L 05/20/25 15:12 97 05/20/25 15:12 78 05/20/25 15:07 96 05/20/25 15:07 77 05/20/25 15:02 100 05/20/25 15:02 82 05/20/25 15:00 16 05/20/25 15:00 36.8 C 16 05/20/25 15:00 93 H 05/20/25 15:00 106/59 L 05/20/25 14:57 97 05/20/25 14:57 70 05/20/25 14:52 97 05/20/25 14:52 69 05/20/25 14:47 97 05/20/25 14:47 71 05/20/25 14:46 78 05/20/25 14:46 108/60 05/20/25 14:42 96 05/20/25 14:42 74 05/20/25 14:37 98 05/20/25 14:37 67 05/20/25 14:32 97 05/20/25 14:32 85 05/20/25 14:30 76 05/20/25 14:30 111/60 05/20/25 14:27 98 05/20/25 14:27 77 05/20/25 14:22 97 05/20/25 14:22 82 05/20/25 14:17 97 05/20/25 14:17 78 05/20/25 14:15 74 05/20/25 14:15 110/63 05/20/25 14:12 97 05/20/25 14:12 77 05/20/25 14:07 97 05/20/25 14:07 79 05/20/25 14:02 96 05/20/25 14:02 86 05/20/25 14:01 18 05/20/25 14:01 18 05/20/25 14:00 88 05/20/25 14:00 120/69 05/20/25 13:57 97 05/20/25 13:57 84 05/20/25 13:52 98 05/20/25 13:52 72 05/20/25 13:47 99 05/20/25 13:47 70 05/20/25 13:47 74 05/20/25 13:47 110/65 05/20/25 13:42 97 05/20/25 13:42 74 05/20/25 13:37 97 05/20/25 13:37 81 05/20/25 13:32 97 05/20/25 13:32 87 05/20/25 13:32 79 05/20/25 13:32 117/64 05/20/25 13:29 93 05/20/25 13:29 83 05/20/25 13:27 97 05/20/25 13:27 78 05/20/25 13:22 98 05/20/25 13:22 83 05/20/25 13:17 96 05/20/25 13:17 75 05/20/25 13:16 78 05/20/25 13:16 115/62 05/20/25 13:12 99 05/20/25 13:12 79 05/20/25 13:07 95 05/20/25 13:07 72 05/20/25 13:02 96 05/20/25 13:02 75 05/20/25 13:00 18 05/20/25 13:00 36.6 C 18 05/20/25 13:00 84 05/20/25 13:00 109/60 05/20/25 12:58 94 05/20/25 12:58 84 05/20/25 12:57 94 05/20/25 12:57 83 05/20/25 12:52 96 05/20/25 12:52 81 05/20/25 12:47 96 05/20/25 12:47 73 05/20/25 12:46 74 05/20/25 12:46 109/59 L 05/20/25 12:42 96 05/20/25 12:42 70 05/20/25 12:37 97 05/20/25 12:37 69 05/20/25 12:32 96 05/20/25 12:32 71 05/20/25 12:31 77 05/20/25 12:31 108/58 L 05/20/25 12:27 95 05/20/25 12:27 77 05/20/25 12:22 96 05/20/25 12:22 71 05/20/25 12:17 96 05/20/25 12:17 75 05/20/25 12:13 72 05/20/25 12:13 116/62 05/20/25 12:12 97 05/20/25 12:12 74 05/20/25 12:08 82 05/20/25 12:08 119/65 05/20/25 12:07 97 05/20/25 12:07 79 05/20/25 12:03 94 H 05/20/25 12:03 119/63 05/20/25 12:02 97 05/20/25 12:02 86 05/20/25 11:57 96 05/20/25 11:57 78 05/20/25 11:57 84 05/20/25 11:57 116/59 L 05/20/25 11:54 88 05/20/25 11:54 123/62 05/20/25 11:52 97 05/20/25 11:52 78 05/20/25 11:52 118/68 05/20/25 11:51 88 05/20/25 11:51 114/72 05/20/25 11:47 98 05/20/25 11:47 91 H 05/20/25 11:42 99 05/20/25 11:42 80 05/20/25 11:37 96 05/20/25 11:37 83 05/20/25 11:03 71 05/20/25 11:03 109/67 05/20/25 11:02 18 05/20/25 11:02 36.8 C 18 05/20/25 10:17 18 05/20/25 10:17 18 05/20/25 10:17 81 05/20/25 10:17 128/65 05/20/25 07:50 37.0 C 104 H 20 130/69 05/20/25 07:48 37.0 C 104 H 20 130/69 Pain Intensity Abdomen: Pain Intensity: 0 Transfer of Care Handoff Completed per policy Notes Mental Status: alert / awake / arousable and participated in evaluation Patient Amnestic to Procedure: No Nausea / Vomiting: adequately controlled Pain: adequately controlled Airway Patency, RR, SpO2: stable & adequate BP & HR: stable & adequate Hydration State: stable & adequate Neuraxial Anesthesia: was administered and sensory block is resolving Anesthetic Complications: no major complications apparent and Pt Satisfied with anesthetic care
--- NOTE | 2025-05-20 20:51 | Anesthesia Procedure Note ---
Date of Service May 20, 2025 Anesthesia Post Epidural Note Vital Signs Vital Signs: Temp Pulse Resp BP Pulse Ox 37.4 C 109 H 22 110/55 L 92 05/20/25 19:05 05/20/25 20:49 05/20/25 19:05 05/20/25 20:43 05/20/25 20:49 Pain Intensity Abdomen: Pain Intensity: 0 Notes Mental Status: alert / awake / arousable and participated in evaluation Patient Amnestic to Procedure: No Nausea / Vomiting: adequately controlled Pain: adequately controlled Airway Patency, RR, SpO2: stable & adequate BP & HR: stable & adequate Hydration State: stable & adequate Neuraxial Anesthesia: was administered and sensory block is resolving Anesthetic Complications: no major complications apparent and Pt Satisfied with anesthetic care Epidural: Removed without complications and With tip intact
[2025-05-20] MEDS ORDERED: SENNA 8.6 MG TAB PO PRN (21:02)
[2025-05-20] MEDS ORDERED: BENZOCAINE 20% SPRY 85 APPLN/85 GM CAN EXT PRN (21:02)
[2025-05-20] MEDS ORDERED: MAGNESIUM HYDROXIDE SUSP 30 ML UDC PO PRN (21:02)
[2025-05-20] MEDS ORDERED: HYDROCORTISONE ACETATE 25 MG SUPP PR PRN (21:02)
[2025-05-20] MEDS ORDERED: CALCIUM CARBONATE 500 MG CHEWABLE TAB PO PRN (21:02)
[2025-05-20] MEDS: KETOROLAC 30 MG/ML VIAL IV SCH (21:30)
[2025-05-21] MEDS: LACTATED RINGER'S 1,000 ML IV SCH (01:38)
[2025-05-21] MEDS ORDERED: ACETAMINOPHEN 325 MG TAB PO SCH (02:45)
[2025-05-21] MEDS: ACETAMINOPHEN 325 MG TAB PO SCH (03:22)
[2025-05-21] MEDS: SIMETHICONE 80 MG CHEW PO SCH (03:23)
[2025-05-21] MEDS: diphenhydrAMINE 50 MG/ML VIAL IV PRN (04:19)
[2025-05-21 06:23] LABS: Hematocrit (blood only) 32.2 % (37.0-47.0); Hemoglobin 10.5 g/dl (12.0-16.0); Immature Granulocytes # (auto) 0.13 K/uL (0.01-0.20); Immature Granulocytes % (auto) 0.6 %; Mean Corpuscular Hemoglobin 27.4 pg (25.0-34.0); Mean Corpuscular Volume 84.1 fL (80.0-100.0); Platelet Count 197 K/uL (130-400); RDW Standard Deviation 44.0 fL (36.4-46.3); Red Blood Count 3.83 M/uL (4.20-5.40); White Blood Count 22.16 K/ul (4.8-10.8)
--- NOTE | 2025-05-21 07:18 | Obstetrical Progress Note ---
Date of Service May 21, 2025 Assessment & Plan (1) care and examination: Plan: 25yo post-op day--1 s/p section Fells well today Continue post- care Encourage ambulation and and bottle feeding Pain controlled Vitals and Hgb stable Admission and Anticipated Discharge Date Admission Date: May 20, 2025 Supervising Physician Co-Signing Physician Notes Resident Physician Supervision Note: I was present with Dr. Wilson during the history and exam. I discussed the case with the resident and agree with the findings and plan as documented in the note. Any exceptions or clarifications are listed here: stable, routine care. eating, voiding, ambulating, +flatus, pain control good. baby in inbn and pt attempting to breast feed. abd soft obese, nt, incision c/d/i ff 2 down nt. ext nt calves. pod#1 s/p c/s doing well. hgb noted. routine care. breast/rhpos/ri Documented By: Shasha Duarte MD, FACOG Subjective 25yo post-op day 1 s/p section Ambulation: Ambulating normally Voiding: No voiding problems Passing Gas: Yes Diet Tolerance: regular diet Lochia:: Small Feeding Type:: breast and bottle feeding Current Pain Level: 4/10 controlled with Tylenol, Ketorolac Resting comfortably this AM in NAD Denies MEJIA, CP, SOB, N/V/D, LE pain/swelling Physical Exam Physical Exam: General: patient resting comfortably, NAD, non-toxic in appearance, answers questions appropriately Skin: warm, dry, intact Heart: S1/S2 heard, regular, no m/r/g Lungs: equal air entry bilaterally, no rales/rhonchi/wheezes Abd: Normoactive BS, soft, NT/ND, uterine fundus firm at umbilicus, clean and dry dressing; incision clean, dry, and intact Ext: warm, no clubbing/cyanosis or edema, Rod's neg Neuro: nonfocal, patient AAOx4, speech intact, no facial droop, moving all extremities on command Results & Data Vital Signs (Past 12 Hours) Vital Signs Temp Pulse Pulse Pulse Resp BP BP 05/21/25 06:00 18 05/21/25 05:00 18 05/21/25 04:30 18 05/21/25 03:00 18 10/24/25 03:00 37.0 C 96 H 18 107/71 05/21/25 02:30 18 05/21/25 01:20 18 05/21/25 00:15 18 05/20/25 23:45 18 05/20/25 23:45 36.9 C 108 H 18 132/84 05/20/25 22:47 05/20/25 22:47 110 H 05/20/25 22:45 18 05/20/25 22:45 36.8 C 111 H 18 111/60 05/20/25 22:45 36.7 C 110 H 20 05/20/25 22:45 105 H 05/20/25 22:45 111/60 05/20/25 22:42 05/20/25 22:42 115 H 05/20/25 22:37 05/20/25 22:37 115 H 05/20/25 22:36 116 H 05/20/25 22:36 120/70 05/20/25 22:32 05/20/25 22:32 116 H 05/20/25 22:27 05/20/25 22:27 111 H 05/20/25 22:26 112 H 05/20/25 22:26 118/61 05/20/25 22:22 05/20/25 22:22 112 H 05/20/25 22:17 05/20/25 22:17 106 H 05/20/25 22:16 115 H 05/20/25 22:16 129/56 L 05/20/25 22:15 106 H 22 05/20/25 22:12 05/20/25 22:12 109 H 05/20/25 22:07 05/20/25 22:07 109 H 05/20/25 22:06 111 H 05/20/25 22:06 122/57 L 05/20/25 22:02 05/20/25 22:02 109 H 05/20/25 21:57 05/20/25 21:57 121 H 05/20/25 21:56 114 H 05/20/25 21:56 90/50 L 05/20/25 21:52 05/20/25 21:52 130 H 05/20/25 21:47 05/20/25 21:47 111 H 05/20/25 21:46 108 H 05/20/25 21:46 117/59 L 05/20/25 21:45 111 H 20 05/20/25 21:42 05/20/25 21:42 116 H 05/20/25 21:41 05/20/25 21:41 110 H 05/20/25 21:37 05/20/25 21:37 105 H 05/20/25 21:36 105 H 05/20/25 21:36 107/58 L 05/20/25 21:35 105 H 20 107/58 L 05/20/25 21:32 05/20/25 21:32 109 H 05/20/25 21:27 05/20/25 21:27 106 H 05/20/25 21:26 113 H 05/20/25 21:26 110/55 L 05/20/25 21:25 113 H 20 110/55 L 05/20/25 21:22 05/20/25 21:22 111 H 05/20/25 21:17 05/20/25 21:17 113 H 05/20/25 21:16 101 H 05/20/25 21:16 112/56 L 05/20/25 21:15 113 H 22 05/20/25 21:12 05/20/25 21:12 107 H 05/20/25 21:07 05/20/25 21:07 114 H 05/20/25 21:06 106 H 05/20/25 21:06 111/57 L 05/20/25 21:05 113 H 22 05/20/25 21:02 05/20/25 21:02 109 H 05/20/25 20:57 05/20/25 20:57 105 H 05/20/25 20:56 110 H 05/20/25 20:56 104/53 L 05/20/25 20:55 107 H 22 05/20/25 20:52 05/20/25 20:52 96 H 05/20/25 20:49 05/20/25 20:49 109 H 05/20/25 20:47 05/20/25 20:47 96 H 05/20/25 20:45 37.1 C 22 05/20/25 20:43 100 H 05/20/25 20:43 110/55 L 05/20/25 20:42 05/20/25 20:42 101 H 05/20/25 19:37 05/20/25 19:37 114 H 05/20/25 19:32 05/20/25 19:32 97 H 05/20/25 19:31 104 H 05/20/25 19:31 124/58 L 05/20/25 19:27 05/20/25 19:27 118 H 05/20/25 19:22 05/20/25 19:22 99 H 05/20/25 19:17 05/20/25 19:17 109 H 05/20/25 19:17 111 H 05/20/25 19:17 151/73 H Pulse Ox O2 Del Method 05/21/25 06:00 95 05/21/25 05:00 95 05/21/25 04:30 95 05/21/25 03:00 96 05/21/25 03:00 96 Room Air 05/21/25 02:30 96 05/21/25 01:20 95 05/21/25 00:15 96 05/20/25 23:45 96 05/20/25 23:45 95 Room Air 05/20/25 22:47 97 05/20/25 22:47 05/20/25 22:45 98 05/20/25 22:45 98 Room Air 05/20/25 22:45 97 05/20/25 22:45 05/20/25 22:45 05/20/25 22:42 94 05/20/25 22:42 05/20/25 22:37 97 05/20/25 22:37 05/20/25 22:36 05/20/25 22:36 05/20/25 22:32 97 05/20/25 22:32 05/20/25 22:27 97 05/20/25 22:27 05/20/25 22:26 05/20/25 22:26 05/20/25 22:22 98 05/20/25 22:22 05/20/25 22:17 98 05/20/25 22:17 05/20/25 22:16 05/20/25 22:16 05/20/25 22:15 98 05/20/25 22:12 98 05/20/25 22:12 05/20/25 22:07 97 05/20/25 22:07 05/20/25 22:06 05/20/25 22:06 05/20/25 22:02 98 05/20/25 22:02 05/20/25 21:57 96 05/20/25 21:57 05/20/25 21:56 05/20/25 21:56 05/20/25 21:52 96 05/20/25 21:52 05/20/25 21:47 96 05/20/25 21:47 05/20/25 21:46 05/20/25 21:46 05/20/25 21:45 96 05/20/25 21:42 97 05/20/25 21:42 05/20/25 21:41 94 05/20/25 21:41 05/20/25 21:37 96 05/20/25 21:37 05/20/25 21:36 05/20/25 21:36 05/20/25 21:35 05/20/25 21:32 97 05/20/25 21:32 05/20/25 21:27 96 05/20/25 21:27 05/20/25 21:26 05/20/25 21:26 05/20/25 21:25 05/20/25 21:22 96 05/20/25 21:22 05/20/25 21:17 97 05/20/25 21:17 05/20/25 21:16 05/20/25 21:16 05/20/25 21:15 97 05/20/25 21:12 97 05/20/25 21:12 05/20/25 21:07 96 05/20/25 21:07 05/20/25 21:06 05/20/25 21:06 05/20/25 21:05 97 05/20/25 21:02 97 05/20/25 21:02 05/20/25 20:57 97 05/20/25 20:57 05/20/25 20:56 05/20/25 20:56 05/20/25 20:55 97 05/20/25 20:52 97 05/20/25 20:52 05/20/25 20:49 92 05/20/25 20:49 05/20/25 20:47 98 05/20/25 20:47 05/20/25 20:45 05/20/25 20:43 05/20/25 20:43 05/20/25 20:42 99 05/20/25 20:42 05/20/25 19:37 98 05/20/25 19:37 05/20/25 19:32 99 05/20/25 19:32 05/20/25 19:31 05/20/25 19:31 05/20/25 19:27 96 05/20/25 19:27 05/20/25 19:22 98 05/20/25 19:22 05/20/25 19:17 99 05/20/25 19:17 05/20/25 19:17 05/20/25 19:17 Resident Activity Tracking Resident Involvement: Resident Care Provided Care Provided: OB Delivery
[2025-05-21] MEDS: DOCUSATE SODIUM 100 MG CAP PO SCH (08:07)
[2025-05-21] MEDS: PRENATAL VITAMIN 1 TAB PO SCH (08:08)
[2025-05-21] MEDS: FERROUS SULFATE 325 MG TAB PO SCH (08:08)
[2025-05-21] MEDS ORDERED: PROMETHAZINE 12.5 MG/50.5 ML BAG IV PRN (14:19)
[2025-05-21] MEDS ORDERED: diphenhydrAMINE 50 MG/ML VIAL IV PRN (14:19)
[2025-05-21] MEDS ORDERED: diphenhydrAMINE Capsule 25 MG CAP PO PRN (14:19)
[2025-05-21] MEDS ORDERED: ONDANSETRON INJ 2 MG/ML 2 ML VIAL IV PRN (14:19)
[2025-05-21] MEDS ORDERED: HYDROmorphone INJ 0.5 MG/0.5 ML SYR IV PRN (14:19)
[2025-05-21] MEDS ORDERED: ZOLPIDEM TARTRATE 5 MG TAB PO PRN (14:19)
[2025-05-21] MEDS ORDERED: Nursing to Pharmacy Communication SCH (20:30)
[2025-05-21] MEDS ORDERED: KETOROLAC 30 MG/ML VIAL IV PRN (20:45)
[2025-05-21] MEDS: IBUPROFEN 600 MG TAB PO SCH (21:45)
[2025-05-22 06:41] LABS: Hematocrit (blood only) 28.9 % (37.0-47.0); Hemoglobin 9.4 g/dl (12.0-16.0)
--- NOTE | 2025-05-22 08:06 | Obstetrical Progress Note ---
Date of Service May 22, 2025 Assessment & Plan (1) care and examination: Plan: 25yo post-op day--2 s/p section Fells well today Continue post- care Encourage ambulation and and bottle feeding Pain control Vitals and Hgb stable Admission and Anticipated Discharge Date Admission Date: May 20, 2025 Supervising Physician Co-Signing Physician Notes Resident Physician Supervision Note: I interviewed and examined the patient. Discussed with Dr. Wilson and agree with findings and plan as documented in the note. Any exceptions or clarifications are listed here: patient is POD#2 from CS, doing well, meeting milestones. Baby has to be observed another night so planning to stay until tomorrow. Uterus firm, incision intact, trace LE edema. Continue PP care. Documented By: Parvin Vail MD Subjective 25yo post-op day 2 s/p section Ambulation: Ambulating normally Voiding: No voiding problems Passing Gas: Yes Diet Tolerance: regular diet Lochia:: Small Feeding Type:: breast and bottle feeding Current Pain Level: 3/10 controlled with Tylenol, Ibuprofen, and Oxycodone prn Resting comfortably this AM in NAD Denies MEJIA, CP, SOB, N/V/D, LE pain/swelling Physical Exam Physical Exam: General: patient resting comfortably, NAD, non-toxic in appearance, answers questions appropriately Skin: warm, dry, intact Heart: S1/S2 heard, regular, no m/r/g Lungs: equal air entry bilaterally, no rales/rhonchi/wheezes Abd: Normoactive BS, soft, NT/ND, uterine fundus firm below umbilicus, incision clean, dry, and intact Ext: warm, no clubbing/cyanosis or edema, Rod's neg Neuro: nonfocal, patient AAOx4, speech intact, no facial droop, moving all extremities on command Results & Data Vital Signs (Past 12 Hours) Vital Signs Temp Pulse Resp BP O2 Del Method 05/22/25 03:50 36.6 C 106 H 20 112/75 Room Air Resident Activity Tracking Resident Involvement: Resident Care Provided Care Provided: OB Delivery
[2025-05-22] MEDS: DIPHTHER/TETAN/PERTUS Vaccine (Tdap, Adol/Adult) 0.5mL IM ONE (12:12)
[2025-05-22 16:29] VITALS: RESP 18
[2025-05-22] MEDS: IBUPROFEN 600 MG TAB PO PRN (21:18)
[2025-05-23] MEDS: ACETAMINOPHEN 325 MG TAB PO PRN (03:34)
[2025-05-23 03:49] VITALS: TEMP 97.3
[2025-05-23 08:03] VITALS: BP 114/73; O2SAT 98
[2025-05-23 08:28] VITALS: PULSE 108
--- NOTE | 2025-05-23 08:59 | Obstetrical Progress Note ---
Date of Service May 23, 2025 Assessment & Plan (1) care and examination: Day 3 status post section. Patient doing well and stable for discharge. Subjective Ambulation: ambulating normally Voiding: no voiding problems Passing Gas:: Yes Diet Tolerance:: regular diet Lochia:: Moderate Feeding Type:: breast feeding Physical Exam Constitutional WD/WN, vitals as above Respiratory normal respiratory effort; no respiratory distress and no labored breathing Cardiovascular Extremities: no calf tenderness Gastrointestinal (Abdomen) Inspection/Auscultation: abdomen normal to inspection; abdomen not distended Percussion/Palpation: abdomen soft; abdomen nontender, no guarding and abdomen not rigid Incision clean dry and intact Genitourinary OB Exam Abdomen: + fundal height Fundus: + firm and + relation to umbilicus (Below); not tender or not boggy Results & Data Vital Signs (Past 12 Hours) Vital Signs Temp Pulse Pulse Resp BP Pulse Ox O2 Del Method 05/23/25 08:26 36.3 C L 108 H 97 H 18 114/73 98 05/23/25 07:57 36.3 C L 97 H 18 114/73 98 Room Air 05/23/25 03:32 36.3 C L 103 H 18 111/70 97 Room Air
[2025-05-23] MEDS ORDERED: NYSTATIN POWDER 15GM BTL EXT SCH (09:45)
--- NOTE | 2025-05-25 13:00 | Discharge Summary ---
Date of Service May 25, 2025 Admission HPI Per Admitting Provider Pt is a 25yo female currently at 39w 6d with an EB 05/21/25 who is here for induction of labor. Jones bulb placed 05/19. Adequate movement; not feeling contractions, no fluid loss; no bloody show PMH: Obesity Had regular appointments with OB. Labs: Blood Type AB Positive 12/09/24 Antibody Screen NEGATIVE 12/09/24 Hgb 11.2 g/dl (12.0-16.0) L 02/24/25 Hct 34.3 % (37.0-47.0) L 02/24/25 MCV 83.8 fL (80.0-100.0) 10/20/24 Plt Count 330 Thousand/uL (140-400) 10/20/24 Rubella IgG Antibody 6.89 Index 10/20/24 Treponema pallidum Ab Negative (Negative) 02/24/25 Hepatitis C Ab (EIA) NON-REACTIVE (NON-REACTIVE) 10/20/24 HIV (1&2) Ag & Ab Conf NON-REACTIVE (NON-REACTIVE) 10/20/24 Glucose 1 Hr 50 gm 132 mg/dl (70-130) H 02/24/25 Chlamydia trachomatis RNA Not Detected (NotDetected) 10/19/24 Neisseria gonorrhoeae RNA Not Detected (NotDetected) 10/19/24 Labs Reviewed: declined cfDNA, msafp, quad smp gbs neg Review of Systems : Denies fever, chills, headache, vision changes, shortness of breath, difficulty breathing, chest pain, palpitations, RUQ/epigastric pain, dysuria Discharge Data Consultations 05/20/25 08:01 Consult Anesthesiology Stat Procedures Performed Operation Date: 05/20/25 20:00 Actual Procedures p Primary Low Transverse Section in LD - Shasha Duarte MD, [facility] Hospital Course (1) care and examination: The patient underwent the above stated procedure without incident and her postoperative course and recovery was uncomplicated. On her postoperative day #3 she was tolerating a regular diet, voiding spontaneously, ambulating without problem and was using oral meds for adequate pain control. Her postoperative hemoglobin was 9.4. She was given written and verbal discharge instructions and told to followup in office at 6wks. She was given appropriate pain medicine prescriptions. Coding Level of Care Code None Diagnoses care and examination Z39.2
== END 2025-05-23 10:30 | disposition home or self-care (01) | DRG 788 ==
LOC: 4S1 07:35 → 4E2 22:59
DX: Z37.0 Single live birth; O36.8330 Maternal care for abnormalities of the fetal heart rate or rhythm, third trimester, not applicable or unspecified; Z3A.39 39 weeks gestation of pregnancy; O99.214 Obesity complicating childbirth